=== PATIENT | male | born 1980 ===

== ENCOUNTER → 2023-11-03 13:44 | Outpatient (CLI) | payer OTHER, SELFPAY ==
--- NOTE | 2023-11-03 14:01 | DI.RAD.S_ITS ---
PROCEDURE: XR SHOULDER RT MIN 2V INDICATIONS: [facility] EVAL TECHNIQUE: 3 views of the shoulder were acquired. COMPARISON: CR, XR CHEST 1VW (PORTABLE), 11/05/2016, 3:49. FINDINGS: Bones: No acute fractures or dislocations. No suspicious bony lesions. Visualized ribs appear intact. Right clavicular ORIF. Hardware is intact without hardware fracture or periprosthetic lucency to suggest loosening. Alignment is stable. Soft tissues: No suspicious soft tissue calcifications. IMPRESSION: No acute bony abnormality. Dictated by: Catie Mays M.D. on 11/03/2023 at 21:11 Approved by: Catie Mays M.D. on 11/03/2023 at 21:12
== END ==
LOC: RAD 13:58
PROVIDERS: PCP Nurse Practitioner Family; Referring Provider Internal Medicine Cardiovascular Disease; Visit Provider Internal Medicine Cardiovascular Disease
DX: M25.511 Pain in right shoulder (principal)
CPT/HCPCS: 73030